=== PATIENT | female | born 1960 | race Caucasian/White ===

== ENCOUNTER 2024-05-28 21:16 | Emergency (ER) | payer MEDICARE, OTHER ==
[~2024-05-28] VITALS: Ht 165.1 cm; Wt 83.5 kg
[2024-05-28] MEDS: ALBUTEROL SULFATE 2.5 MG/3 ML NEBU NEB ONE (21:33)
[2024-05-28] MEDS: IPRATROPIUM BROMIDE 0.5 MG/2.5 ML NEBU NEB ONE (21:33)
[2024-05-28 21:35] VITALS: O2SAT 98
[2024-05-28] MEDS ORDERED: IPRATROPIUM BROMIDE 0.5 MG/2.5 ML NEBU ONE (21:36)
[2024-05-28] MEDS ORDERED: ALBUTEROL SULFATE 2.5 MG/3 ML NEBU ONE (21:36)
[2024-05-28 21:50] VITALS: O2SAT 99
[2024-05-28] MEDS: predniSONE 10 MG TABLET PO ONE (21:56)
[2024-05-28] MEDS ORDERED: predniSONE 20 MG TABLET ONE (22:09)
[2024-05-28] MEDS ORDERED: PRED20TA PO (22:33)
[2024-05-28 22:44] VITALS: BP 135/78; TEMP 98; O2SAT 99
== END 2024-05-28 22:45 | disposition home or self-care (01) ==
LOC: ER 21:18
DX: J04.0 Acute laryngitis (principal); E78.00 Pure hypercholesterolemia, unspecified; J45.909 Unspecified asthma, uncomplicated; F32.A Depression, unspecified; Z20.822 Contact with and (suspected) exposure to COVID-19; Z79.52 Long term (current) use of systemic steroids
CPT/HCPCS: 71045; A4606; A4663; J3590; J7512

== ENCOUNTER 2024-09-16 08:17 | Emergency (ER) | payer MEDICARE, OTHER ==
[~2024-09-16] VITALS: Ht 165.1 cm; Wt 82.6 kg
[~2024-09-16 08:17] MED LIST: PRED20TA PO
[2024-09-16] MEDS ORDERED: KETOROLAC TROMETHAMINE 15 MG INJ ONE (08:47)
[2024-09-16] MEDS ORDERED: METOCLOPRAMIDE HCL 10 MG/2 ML VIAL ONE (08:47)
[2024-09-16 08:49] LABS: BASOPHILS # (AUTO) 0.1 K/UL (0.0-0.2); BASOPHILS % (AUTO) 0.7 % (0.0-2.0); EOSINOPHILS # (AUTO) 0.3 K/uL (0.0-0.7); EOSINOPHILS % (AUTO) 3.1 % (0.0-7.0); HEMOGLOBIN 13.7 g/dL (10.9-14.3); LYMPHOCYTES # (AUTO) 1.3 K/uL (0.8-4.8); LYMPHOCYTES % (AUTO) 15.4 % (20.5-51.5); MEAN CORPUSCULAR HEMOGLOBIN 32.4 uug (24.7-32.8); MEAN CORPUSCULAR HGB CONC 35 g/dL (32.3-35.6); MEAN CORPUSCULAR VOLUME 92.3 fL (75.5-95.3); MONOCYTES # (AUTO) 0.8 K/uL (0.1-1.30); MONOCYTES % (AUTO) 9.7 % (0.0-11.0); NEUTROPHILS % (AUTO) 71.1 % (38.5-71.5); PLATELET COUNT (AUTO) 224 K/uL (179-408); RED BLOOD CELL COUNT(AUTO) 4.22 MIL/uL (3.63-4.92); WHITE BLOOD COUNT (AUTO) 8.5 K/uL (3.8-11.8)
[2024-09-16] MEDS: METOCLOPRAMIDE HCL 10 MG/2 ML VIAL IV ONE (09:04)
[2024-09-16] MEDS: KETOROLAC TROMETHAMINE 15 MG INJ IVP ONE (09:05)
[2024-09-16 09:07] LABS: ALANINE AMINOTRANSFERASE 38 U/L (14-59); ALBUMIN 3.4 g/dL (3.4-5.0); ALKALINE PHOSPHATASE 91 U/L (50-136); ASPARTATE AMINOTRANSFERASE 30 U/L (15-37); BILIRUBIN,DIRECT 0.1 mg/dL (0.0-0.2); BILIRUBIN,TOTAL 0.9 mg/dL (0.2-1.0); CALCIUM 9.4 mg/dL (8.5-10.1); CARBON DIOXIDE 25 mmol/L (21-32); CHLORIDE 101 mmol/L (98-107); CREATININE 0.8 mg/dL (0.6-1.3); GLUCOSE 111 mg/dL (74-106); SODIUM SERUM 137 mmol/L (136-145); TOTAL PROTEIN, SERUM 7.8 g/dL (6.4-8.2); UREA NITROGEN, BLOOD 10 mg/dL (7-18)
[2024-09-16 09:15] LABS: POTASSIUM 3.8 mmol/L (3.5-5.1)
[2024-09-16 09:39] LABS: LIPASE 43 U/L (16-77)
[2024-09-16] MEDS ORDERED: CEFTRIAXONE /D5W 50ML IVPB **ER PYXIS IV ONE (09:51)
[2024-09-16] MEDS ORDERED: METRONIDAZOLE 500 MG/NS 100ML 100 ML IV ONE (09:51)
[2024-09-16 09:52] LABS: *OCCULT BLOOD STOOL NEGATIVE (NEGATIVE)
[2024-09-16] MEDS: CEFTRIAXONE 1 G in IV DEXTROSE 5% 50 ML IV ONE (10:04)
[2024-09-16] MEDS: IV NORMAL SALINE 1000 ML BAG IV ONE (10:04)
[2024-09-16] MEDS ORDERED: IBUP-1957 PO (10:17)
[2024-09-16] MEDS ORDERED: AMOX-430 PO (10:17)
[2024-09-16] MEDS: METRONIDAZOLE 500 MG/NS 100ML 100 ML IV ONE (10:35)
[2024-09-16 11:33] VITALS: BP 123/82; O2SAT 96
[2024-09-16 11:42] LABS: *BILIRUBIN,URIN NEGATIVE (NEGATIVE); *BLOOD, URINE NEGATIVE (NEGATIVE); *CLARITY,URINE CLEAR (CLEAR); *COLOR,URINE YELLOW (YELLOW); *KETONES,URINE NEGATIVE (NEGATIVE); *PROTEIN,URINE NEGATIVE (NEGATIVE); *UROBILINOGEN,URINE 0.2 E.U./dl (NORMAL); LEUKOCYTE ESTERASE ,URINE TRACE (NEGATIVE); NITRITE, URINE NEGATIVE (NEGATIVE); UGLUCOSE NEGATIVE (NEGATIVE)
[2024-09-16 12:30] LABS: BACTERIA,URINE FEW /HPF (NONE SEEN); SQUAMOUS EPITHELIAL CELL,UR FEW /HPF (NONE SEEN); WBC,URINE 0-3 /HPF (0-3)
== END 2024-09-16 11:34 | disposition home or self-care (01) ==
LOC: ER 08:18
DX: K57.32 Diverticulitis of large intestine without perforation or abscess without bleeding (principal); J45.909 Unspecified asthma, uncomplicated; E78.5 Hyperlipidemia, unspecified; I10 Essential (primary) hypertension; F32.A Depression, unspecified; R07.9 Chest pain, unspecified; R94.31 Abnormal electrocardiogram [ECG] [EKG]; Z95.0 Presence of cardiac pacemaker; Z79.52 Long term (current) use of systemic steroids
CPT/HCPCS: 99285; 74176; 96365; 96375; 71045; 96367; 82270; 80076; 80048; 81001; 83690; 85025; 85730; 87040 ×2; 84484; 36415; 93005; 83605; J0696; J1885; J2765; J3490; J7040 ×3; A4606; A4663

== ENCOUNTER 2025-07-07 10:30 | Emergency (ER) | payer MEDICARE, MEDICAID ==
[~2025-07-07] VITALS: Ht 165.1 cm; Wt 69.4 kg
[~2025-07-07 10:30] MED LIST changes: +AMOX-430 PO; +IBUP-1957 PO
[2025-07-07 10:31] VITALS: BP 115/77
[2025-07-07] MEDS ORDERED: LIDOCAINE 2%-EPI 1:100,000 20 ML VIAL ONE (11:41)
[2025-07-07] MEDS: LIDOCAINE 2%-EPI 1:100,000 20 ML VIAL IJ ONE (11:57)
[2025-07-07] MEDS ORDERED: OXYC-128 PO (12:17)
[2025-07-07] MEDS ORDERED: CEFD300C3 PO (12:17)
[2025-07-07 12:27] VITALS: BP 115/77; TEMP 97.8; O2SAT 97
== END 2025-07-07 12:29 | disposition home or self-care (01) ==
LOC: ER 10:30
DX: L02.416 Cutaneous abscess of left lower limb (principal); J45.909 Unspecified asthma, uncomplicated; I51.9 Heart disease, unspecified; F32.A Depression, unspecified; Z79.52 Long term (current) use of systemic steroids; Z79.899 Other long term (current) drug therapy
CPT/HCPCS: 87070; 87205; A4606; A4663

== ENCOUNTER 2025-07-09 15:25 | Emergency (ER) | payer MEDICARE, MEDICAID ==
[~2025-07-09] VITALS: Ht 165.1 cm; Wt 68.0 kg
[~2025-07-09 15:25] MED LIST changes: +CEFD300C3 PO; +OXYC-128 PO
[2025-07-09 15:29] VITALS: BP 118/75
[2025-07-09] MEDS ORDERED: ALBUTEROL SULFATE 2.5 MG/3 ML NEBU ONE (15:58)
[2025-07-09] MEDS ORDERED: IPRATROPIUM BROMIDE 0.5 MG/2.5 ML NEBU ONE (15:58)
[2025-07-09 16:12] VITALS: O2SAT 95
[2025-07-09] MEDS: ALBUTEROL SULFATE 2.5 MG/3 ML NEBU NEB ONE (16:12)
[2025-07-09] MEDS: IPRATROPIUM BROMIDE 0.5 MG/2.5 ML NEBU NEB ONE (16:12)
[2025-07-09] MEDS ORDERED: ALBU18HF2 INH (16:13)
[2025-07-09] MEDS ORDERED: PRED20TA PO (16:13)
[2025-07-09 16:45] VITALS: O2SAT 98
[2025-07-09 17:13] VITALS: BP 118/75; TEMP 98.7; O2SAT 98
== END 2025-07-09 17:13 | disposition home or self-care (01) ==
LOC: ER 16:56
DX: U07.1 COVID-19 (principal); J45.901 Unspecified asthma with (acute) exacerbation; J06.9 Acute upper respiratory infection, unspecified; F32.A Depression, unspecified; Z79.52 Long term (current) use of systemic steroids; Z86.79 Personal history of other diseases of the circulatory system
CPT/HCPCS: 99283; 87426; 94640; J7512; A4606; A4663; J3590

== ENCOUNTER 2025-08-09 14:37 | Emergency (ER) | payer MEDICARE, MEDICAID ==
[~2025-08-09] VITALS: Ht 162.6 cm; Wt 68.0 kg
[~2025-08-09 14:37] MED LIST changes: +ALBU18HF2 INH
[2025-08-09 14:40] VITALS: BP 112/71
[2025-08-09] MEDS ORDERED: HYDROCODONE/APAP 5-325MG TABLET ONE (15:13)
[2025-08-09] MEDS ORDERED: TDAP DIPH,PERTUSS,TET VAC/PF 0.5 ML DISP.SYRIN IM ONE (15:13)
[2025-08-09] MEDS: HYDROCODONE/APAP 5-325MG TABLET PO ONE (15:16)
[2025-08-09] MEDS: TDAP DIPH,PERTUSS,TET VAC/PF 0.5 ML DISP.SYRIN IM ONE (15:18)
[2025-08-09] MEDS ORDERED: LIDOCAINE HCL 1% 20 ML VIAL ONE (15:19)
[2025-08-09] MEDS: LIDOCAINE HCL 1% 20 ML VIAL TP ONE (15:25)
[2025-08-09] MEDS ORDERED: NEOMY/BACITRA/POLYMYXIN B OINT UD PACKET TP ONE (16:50)
[2025-08-09] MEDS ORDERED: CEPH500C2 PO (16:54)
[2025-08-09] MEDS ORDERED: OXYC-128 PO (16:54)
[2025-08-09] MEDS: NEOMY/BACITRA/POLYMYXIN B OINT UD PACKET TP ONE (17:05)
[2025-08-09 17:09] VITALS: BP 121/66; O2SAT 97
== END 2025-08-09 17:11 | disposition home or self-care (01) ==
LOC: ER 14:37
DX: S51.812A Laceration without foreign body of left forearm, initial encounter (principal); E78.5 Hyperlipidemia, unspecified; I11.9 Hypertensive heart disease without heart failure; J45.909 Unspecified asthma, uncomplicated; F32.A Depression, unspecified; Z79.52 Long term (current) use of systemic steroids; Z79.899 Other long term (current) drug therapy; W01.0XXA Fall on same level from slipping, tripping and stumbling without subsequent striking against object, initial encounter; Y93.89 Activity, other specified; Y92.89 Other specified places as the place of occurrence of the external cause; Y99.8 Other external cause status
CPT/HCPCS: 12002; 73090; 90471; 90715; 99283; J3490; A4606; A4663